=== PATIENT | male | born 1995 | race Caucasian/White ===

== ENCOUNTER 2016-10-30 00:17 | Emergency (ER) | payer OTHER ==
[2016-10-30 01:34] VITALS: BP 130/71; PULSE 66; TEMP 98; BMI 25.0
--- NOTE | 2016-10-30 02:06 | PDOC ---
History of Present Illness - General Chief Complaint: Pain Stated Complaint: PUNCTURED WITH EPI PEN Time Seen by Provider: 10/30/16 01:40 History Source: Patient Exam Limitations: No Limitations - History of Present Illness Initial Comments: 10/30/16 02:01 21yo Male patient presents to ED c/o right hand injury. Patient states while playing with an Epi-Pen he injected it into his right hand. Patient reports incident occurred at 1030pm. He called poison control and was instructed to apply warm compress to area. Associated "jitterness." Denies chest pain, back pain, diff breathing, fever, anxiety, abd pain, or any other complaints at this time. Past History - Travel Traveled outside of the country in the last 30 days: No Close contact w/someone who was outside of country & ill: No - Past Medical History Allergies/Adverse Reactions: Allergies Allergy/AdvReac Type Severity Reaction Status Date / Time No Known Allergies Allergy Verified 02/06/16 12:09 Home Medications: Ambulatory Orders Ibuprofen [Motrin -] 600 mg PO QID #28 tablet 02/06/16 Oseltamivir Phosphate [Tamiflu] 75 mg PO BID #10 capsule 02/06/16 - Surgical History Cholecystectomy: Yes - Immunization History Immunization Up to Date: Yes - Psycho/Social/Smoking Cessation Hx Anxiety: No Suicidal Ideation: No Smoking History: Never smoked Have you smoked in the past 12 months: No Hx Alcohol Use: No Drug/Substance Use Hx: No Substance Use Type: None Review of Systems - Review of Systems Able to Perform ROS?: Yes Is the patient limited Hebrew proficient: No Constitutional: No: Chills, Fever Respiratory: No: Cough, Orthopnea, Shortness of Breath, Stridor, Wheezing Cardiac (ROS): No: Chest Pain, Edema, Irregular Heart Rate, Lightheadedness, Palpitations, Syncope, Chest Tightness ABD/GI: No: Constipated, Diarrhea, Difficulty Swallowing, Nausea, Vomiting Musculoskeletal: No: Back Pain Integumentary: Yes: Pallor (Right hand ). No: Bruising, Erythema Neurological: No: Headache, Numbness, Paresthesia, Seizure, Tingling, Tremors, Weakness, Dizziness Psychiatric: No: Anxiety All Other Systems: Reviewed and Negative *Physical Exam - Vital Signs Last Vital Signs Temp Pulse Resp BP Pulse Ox 98 F 66 16 130/71 100 10/30/16 01:33 10/30/16 01:33 10/30/16 01:33 10/30/16 01:33 10/30/16 01:33 - Physical Exam General Appearance: Yes: Nourished, Appropriately Dressed. No: Apparent Distress, Mild Distress, Moderate Distress, Severe Distress Neck: positive: Trachea midline, Supple. negative: Stridor Respiratory/Chest: positive: Lungs Clear, Normal Breath Sounds. negative: Respiratory Distress, Accessory Muscle Use, Labored Respiration, Rapid RR, Stridor, Wheezing Cardiovascular: positive: Regular Rhythm, Regular Rate. negative: Edema, JVD, Murmur Gastrointestinal/Abdominal: positive: Normal Bowel Sounds, Soft. negative: Distended, Guarding, Rebound, Tenderness Musculoskeletal: positive: Normal Inspection. negative: CVA Tenderness Extremity: positive: Normal Capillary Refill, Normal Inspection, Normal Range of Motion, Delayed Capillary Refill (Palm of right hand). negative: Pedal Edema , Swelling, Erythema Integumentary: positive: Dry, Warm, Pale (Large area-lateral aspect-hare side of right hand.). 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 *DC/Admit/Observation/Transfer Diagnosis at time of Disposition: Drug overdose Qualifiers: Encounter type: initial encounter Injury intent: accidental or unintentional Qualified Code(s): T50.901A - Poisoning by unspecified drugs, medicaments and biological substances, accidental (unintentional), initial encounter - Discharge Dispostion Disposition: HOME Condition at time of disposition: Improved Admit: No - Patient Instructions Printed Discharge Instructions: Epinephrine Injection Additional Instructions: FOLLOW UP WITH YOUR PRIMARY CARE DOCTOR IN 48 HOURS. CALL TO SCHEDULE APPOINTMENT. CONTINUE TO APPLY WARM COMPRESS TO AFFECTED AREA EVERY 2 HOURS UNTIL SYMPTOM IMPROVE. RETURN IF ANY CONCERNS FOR FURTHER EVALUATION.
[2016-10-30] MEDS ORDERED: PHENTOLAMINE MESYLATE 5 MG/2 ML VIAL IM ONE (05:16)
== END 2016-10-30 05:54 | disposition home or self-care (01) ==
LOC: JER 00:17
DX: T44.5X1A Poisoning by predominantly beta-adrenoreceptor agonists, accidental (unintentional), initial encounter (principal); Y92.038 Other place in apartment as the place of occurrence of the external cause
CPT/HCPCS: 99281-25

== ENCOUNTER 2017-02-25 19:51 | Emergency (ER) | payer OTHER ==
[2017-02-25 20:13] VITALS: BP 133/60; PULSE 91; TEMP 98.5; BMI 24.3
--- NOTE | 2017-02-25 20:15 | PDOC ---
Rapid Medical Evaluation Time Seen by Provider: 02/25/17 20:10 Medical Evaluation: Allergies Allergy/AdvReac Type Severity Reaction Status Date / Time No Known Allergies Allergy Verified 02/06/16 12:09 02/25/17 20:11 I have performed a brief in-person evaluation of this patient. The patient presents with a chief complaint of: sore throat, headache, body aches w/ subjective fever since this am Pertinent physical exam findings: Stable w/ unremarkable exam I have ordered the following: nothing, will defer management to ED provider The patient will proceed to the ED for further evaluation. 02/25/17 20:13
[2017-02-25] MEDS ORDERED: IBUPROFEN 600 MG TABLET (FP) PO ONE ×2 (20:45→20:47)
--- NOTE | 2017-02-25 21:02 | PDOC ---
History of Present Illness - General Chief Complaint: Sore Throat Stated Complaint: THROAT/BODY PAIN Time Seen by Provider: 02/25/17 20:10 History Source: Patient Exam Limitations: No Limitations - History of Present Illness Initial Comments: 02/25/17 21:00 21 yr male with sore throat, nasal congestion, cough for 3 days. 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 Past History - Past Medical History Allergies/Adverse Reactions: Allergies Allergy/AdvReac Type Severity Reaction Status Date / Time No Known Allergies Allergy Verified 02/25/17 20:13 Home Medications: Ambulatory Orders Ibuprofen [Motrin -] 600 mg PO QID #28 tablet 02/06/16 Oseltamivir Phosphate [Tamiflu] 75 mg PO BID #10 capsule 02/06/16 Fluticasone Prop 0.05% Nasal [Flonase -] 1 - 2 spray NS DAILY #1 spray.pump Other medical history: denies - Surgical History Cholecystectomy: Yes - Immunization History Immunization Up to Date: Yes - Psycho/Social/Smoking Cessation Hx Anxiety: No Suicidal Ideation: No Smoking History: Never smoked Have you smoked in the past 12 months: No Hx Alcohol Use: No Drug/Substance Use Hx: No Substance Use Type: None Review of Systems - Review of Systems Able to Perform ROS?: Yes Is the patient limited Yemeni proficient: No Constitutional: Yes: Symptoms Reported HEENTM: Yes: Symptoms Reported, Nose Congestion, Throat Pain Respiratory: Yes: Symptoms reported, Cough Cardiac (ROS): No: Symptoms Reported ABD/GI: No: Symptoms Reported : No: Symptoms Reported Musculoskeletal: No: Symptoms Reported Integumentary: No: Symptoms Reported Neurological: No: Symptoms reported *Physical Exam - Vital Signs Last Vital Signs Temp Pulse Resp BP Pulse Ox 98.5 F 91 H 18 133/60 99 02/25/17 20:11 02/25/17 20:11 02/25/17 20:11 02/25/17 20:11 02/25/17 20:11 - Physical Exam General Appearance: Yes: Nourished, Appropriately Dressed HEENT: positive: EOMI, NIGEL, Normal ENT Inspection, TMs Normal, Pharynx Normal, Nasal Congestion Neck: positive: Supple. negative: Lymphadenopathy (R), Lymphadenopathy (L) Respiratory/Chest: positive: Lungs Clear, Normal Breath Sounds. negative: Chest Tender, Wheezing Cardiovascular: positive: Regular Rate. negative: Regular Rhythm Musculoskeletal: positive: Normal Inspection Extremity: positive: Normal Capillary Refill, Normal Inspection, Normal Range of Motion Integumentary: positive: Normal Color, Dry, Warm Neurologic: positive: Fully Oriented, Alert, Normal Mood/Affect, Normal Response , Motor Strength 01/11 ED Treatment Course - Medications Given in the ED: ED Medications Discontinued Medications Generic Name Dose Route Start Last Admin Trade Name Freq PRN Reason Stop Dose Admin Ibuprofen 600 mg 02/25/17 20:45 02/25/17 20:48 Motrin - PO 02/25/17 20:46 600 mg ONCE ONE Administration Medical Decision Making - Medical Decision Making 02/25/17 21:02 cc: sore throat nasal congestion, non toxic will check for strep motrin given for pain 02/25/17 21:02 02/25/17 21:23 *DC/Admit/Observation/Transfer Diagnosis at time of Disposition: Pharyngitis Qualifiers: Pharyngitis/tonsillitis etiology: unspecified etiology Qualified Code(s): J02.9 - Acute pharyngitis, unspecified - Discharge Dispostion Disposition: HOME Condition at time of disposition: Good - Prescriptions Prescriptions: Fluticasone Prop 0.05% Nasal [Flonase -] 1 - 2 spray NS DAILY #1 spray.pump - Referrals Referrals: Samina Faustin MD [Primary Care Provider] - - Patient Instructions Additional Instructions: drink pleanty of fluids use the Floanse nasal spray as directed take motrin 600-800mg every 6hrs for pain or fever garlge with warm salt water , take an over the counter anithistamine such as claritin, marlo or zyrtec 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
== END 2017-02-25 21:30 | disposition home or self-care (01) ==
LOC: JERFT 19:51
DX: J02.9 Acute pharyngitis, unspecified (principal)
CPT/HCPCS: 87070; 87077; 87430; 99281-25